=== PATIENT | female | born 1945 | race Caucasian/White ===

== ENCOUNTER 2016-07-08 14:08 | Inpatient (IN) | payer MEDICARE ==
[~2016-07-08] VITALS: Ht 167.6 cm; Wt 81.3 kg
--- NOTE | 2016-07-08 14:05 | ED.REPORT ---
HPI-Neurologic Deficit Date of Service Jul 08, 2016 ED Provider: History of Present Illness: Last known normal: 1339 today The patient is a 70 year old female with history of hypertension, who presents to the emergency department by EMS for sudden onset of stroke like symptoms. She was last seen normal prior to 1340. She suddenly developed left-sided weakness and numbness, left-sided facial droop, slurred speech, and a right- sided headache. Her symptoms have improved since onset. She has not had similar symptoms in the past. She denies history of previous stroke. Nursing Notes Stated Complaint: POSS STROKE Nursing Notes Reviewed: Yes Allergies: Coded Allergies: morphine (Verified Allergy, Intermediate, Hives, 06/07/15) Scheduled Hydrochlorothiazide (Hydrochlorothiazide) 25 Mg Tablet 25 MG PO DAILY Lisinopril (Lisinopril) 5 Mg Tablet 5 MG PO DAILY General Time Seen by Provider: 14:06 Chief Complaint Other (left-sided weakness) Hx Obtained From: Patient, EMS Arrived By: Ambulance Sudden in Onset?: Yes Onset Occurred: 16 - 30 minutes ago Symptom Duration: Since onset Progression Since Onset: Gradually improving Location: : Head Quality: Painful Severity: Current: No pain currently Severity: Maximum: Moderate Recent Healthcare: No recent doctor visit, No recent hospitalization Similar Sx Previous: No Risk Factors TPA Administration/Criteria Stroke Thrombolytic Therapy : TPA Considered: Yes Neurologist Contacted: No TPA Administered Intravenously: No, not indicated (symptoms improved) NIH Stroke Scale Level of Consciousness: Alert and responsive (0) Ask Month & Age: Both questions right (0) Open/Close Eyes/Hand Residential Tech: Performs both tasks (0) Horizontal EO Movements: None (0) Visual Garcia: No visual loss (0) Facial Palsy: Normal symmetry (0) Right Arm Motor Drift (10s): No drift 10 sec (0) Left Arm Motor Drift (10s): No drift 10 sec (0) Right Leg Motor Drift (5s): No drift 5 sec (0) Left Leg Motor Drift (5s): No drift 5 sec (0) Limb Ataxia FNF/Heel-Elizabeth: No ataxia (0) Sensation (Arms/Legs/Face): No sensory loss (0) Language Aphasia: No aphasia, normal (0) Dysarthria: No dysarthria, normal (0) Extinction/Inattention: No exctinct/inattent (0) NIHSS Score: 0 Time NIHSS Performed: 14:20 Date NIHSS Performed: Jul 08, 2016 Past Medical History Past Medical History Hypertension Essential tremor Past Surgical History Left knee surgery Family History Noncontributory Smoking History Former Smoker Social History Alcohol Use: Denies alcohol use Drug Use: Denies drug use Other Social History: , Local resident Occupation lives in bottom of a 2 story house Ambulatory Status Independent Review of Systems Neurologic: Reports: Focal weakness, Headache, Numbness, Slurred speech Complete sys rev & neg: except as marked. Physical Exam Initial Vital Signs Vital Signs (First) Date Time Temp Pulse Resp B/P Pulse Ox O2 Delivery O2 Flow Rate FiO2 07/08/16 14:22 36.6 92 19 162/91 Room Air 07/08/16 15:00 99 Initial VS: Reviewed ENT: Mucous membranes moist, Conjunctiva normal, No scleral icterus Neck: Supple, Non-tender, Full range of motion Abdomen / GI: Soft, Non-tender, No guarding, No rebound, No distention Extremities: Vascular intact, Neuro intact, No swelling, No tenderness Skin: Warm, Dry, No cyanosis Psychiatric: Mood/affect normal, Behavior normal, Normal thought content General/Constitutional: Awake, Alert Head / Eyes: Atraumatic, Normocephalic, PERRL, EOMI, No nystagmus Respiratory / Chest: Atraumatic, Breath sounds NL, Breath sounds = bilat, No respiratory distress, No rales, No rhonchi, No wheezing Cardiovascular: Heart rate NL, Regular rhythm, Heart sounds NL, No murmurs, No rubs, Peripheral circulation NL Neurologic: Oriented X3, Speech NL, No motor deficits, No sensory deficits, CN II - XII intact, Cerebellar NL, Memory NL NIHSS: 0 Interpretation & Diagnostics Lab Results Interpretation Result Diagram: 07/08/16 1410 07/08/16 1410 Test 07/08/16 14:10 White Blood Count 9.0th/mm3 (3.8-10.1) Red Blood Count 3.92mil/mm3 (3.90-5.20) Hemoglobin 12.2g/dL (12.0-15.6) Hematocrit 36.9% (35.0-46.0) Mean Corpuscular Volume 94.1fL (81-100) Mean Corpuscular Hemoglobin 31.1pg (27.0-35.0) Mean Corpuscular Hemoglobin Concent 33.1% (32.0-37.0) Red Cell Distribution Width 12.6% (12.3-15.4) Platelet Count 333bil/L (150-400) Neutrophils (%) (Auto) 57.5% (40-74) Lymphocytes (%) (Auto) 31.5% (14-46) Monocytes (%) (Auto) 5.9% (4-12) Eosinophils (%) (Auto) 4.3% (0-5) Basophils (%) (Auto) 0.7% (0-3) Prothrombin Time 9.9sec (8.1-12.5) Prothromb Time International Ratio 0.93ratio Activated Partial Thromboplast Time 25.2sec (22.8-33.0) Sodium Level 139mEq/L (134-144) Potassium Level 4.6mEq/L (3.5-5.2) Chloride Level 102mEq/L (97-108) Carbon Dioxide Level 22mmol/L (18-29) Blood Urea Nitrogen 22mg/dL (8-27) Creatinine 1.15mg/dL (0.57-1.00) Estimat Glomerular Filtration Rate 66mL/min (>59) Glucose Level 145mg/dL (60-99) Calcium Level 10.0mg/dL (8.5-10.1) Total Bilirubin 0.3mg/dL (0.0-1.2) Aspartate Amino Transf (AST/SGOT) 20U/L (0-50) Alanine Aminotransferase (ALT/SGPT) 16U/L (0-32) Alkaline Phosphatase 53U/L (25-165) Troponin T < 0.010ug/L (0.0-0.011) Total Protein 7.2g/dL (6.4-8.4) Albumin 4.0g/dL (3.4-5.0) ECG Interpretation ECG Interpretation: Sinus rhythm with a rate of 85 Abnormal R-wave progression Time: 14:29 Interpreted by: ED physician X-Ray Chest Interpretation Chest Xray Interpretation: IMPRESSION: No acute cardiopulmonary findings. Dictated by: Yara Quigley M.D. on 07/08/2016 at 14:57 Interpretation / Wet Read by: Interpret - Radiologist CT Head Interpretation IMPRESSION: 1. No acute intracranial findings. 2. Findings likely associated with chronic microvascular ischemic changes. This study fulfills neurological imaging criteria for inclusion or exclusion of acute stroke therapies based on available published neurological guidelines. Dictated by: Yara Quigley M.D. on 07/08/2016 at 14:25 Study: Head CT no contrast Interpretation / Wet Read by: Interpret - Radiologist Re-Eval/Medical Decision Med Decision/Clinical Course TIA. Will admit. No indication for TPA as symptoms have resolved. Source of Hx: Old records, EMS Re-Evaluation/Progress : Time of Eval: 14:30 Re-Evaluation/Progress Note: Discussed head CT results, diagnosis, and plan for admission. Consultation : Referral / Consult Name: Jax Lund MD Consulted With: Hospitalist Requested Call at: 15:03 Call Returned at: 15:55 Pump Station Operator: Will see patient, Agrees with eval, Agrees with plan, Accepts admit Counseled Regarding: Diagnosis, Lab results, Need for admission Discharge & Departure Impression: Primary Impression: TIA (transient ischemic attack) Transient cerebral ischemia type: unspecified Qualified Code: G45.9 - Transient cerebral ischemic attack, unspecified Disposition: ADMITTED TO HOSPITAL Discharge Condition All VS Reviewed: Yes Condition: Stable Referrals: Matt Cameron MD (PCP) Scribe Attestation Portions of this note were transcribed by Carole Jeter. I, Dr. Busch personally performed the history, physical exam and medical decision-making; I reviewed and confirmed the accuracy of the information in the transcribed note. Signed by: Avril Cardoza, 07/08/2016 at 1600. copies to: Matt Cameron MD, Timothy S DO Jul 08, 2016 14:05 Carole Jeter Jul 08, 2016 14:14
[~2016-07-08 14:08] MED LIST: HYDR25TA4 PO; LISI-571 PO
[2016-07-08] MEDS ORDERED: 0.9% Sodium Chloride 1,000 ML IV ONE (14:15)
[2016-07-08 14:17] LABS: BASOPHILS % (AUTO) 0.7 % (0-3); EOSINOPHILS % (AUTO) 4.3 % (0-5); MONOCYTES % (AUTO) 5.9 % (4-12); Mean Corpuscular Hemoglobin 31.1 pg (27.0-35.0); Mean Corpuscular Volume 94.1 fL (81-100); NEUTROPHILS % (AUTO) 57.5 % (40-74); Platelet Count 333 bil/L (150-400)
[2016-07-08 14:22] VITALS: BP 162/91; PULSE 92; RESP 19
--- NOTE | 2016-07-08 14:30 | DRSVH ---
PROCEDURE: CT BRAIN (TPA) ([id number]) INDICATIONS: Stroke TECHNIQUE: Noncontrast 4.5 mm thick angled axial sections acquired from the foramen magnum to the vertex, with c oronal reformats. COMPARISON: None. FINDINGS: Image quality: Excellent. CSF spaces: Basal cisterns are patent. No extra-axial fluid collections. The ventricles are symmet zoie in size and shape. Brain: No intracranial bleeds or masses. There is cerebral volume loss for age, with resultant vent ricular and sulcal prominence. There are periventricular and deep white matter chronic small vessel ischemic changes. There is intracranial internal carotid artery atherosclerosis. Skull and face: Calvarium and visualized facial bones appear intact, without suspicious lesions. Sinuses: Visualized sinuses and mastoids are clear. IMPRESSION: 1. No acute intracranial findings. 2. Findings likely associated with chronic microvascular ischemic changes. This study fulfills neurological imaging criteria for inclusion or exclusion of acute stroke therapie s based on available published neurological guidelines. Dictated by: Yara Quigley M.D. on 07/08/2016 at 14:25 Approved by: Yara Quigley M.D. on 07/08/2016 at 14:28
[2016-07-08 14:35] LABS: INR 0.93 ratio
[2016-07-08 14:42] LABS: TROPONIN T < 0.010 ug/L (0.0-0.011)
[2016-07-08 15:00] VITALS: BP 169/100; PULSE 80; RESP 15; O2SAT 99
--- NOTE | 2016-07-08 15:00 | DRSVH ---
PROCEDURE: X-RAY CHEST ONE VIEW, PORTABLE ([id number]) INDICATIONS: cva TECHNIQUE: One view of the chest was acquired. COMPARISON: None. FINDINGS: Surgical changes and devices: None. Lungs and pleura: No pleural effusions or pneumothorax. Lungs are clear. Mediastinum: Mediastinal contours appear normal. Heart size is normal. Bones and chest wall: No suspicious bony lesions. Overlying soft tissues appear unremarkable. IMPRESSION: No acute cardiopulmonary findings. Dictated by: Yara Quigley M.D. on 07/08/2016 at 14:57 Approved by: Yara Quigley M.D. on 07/08/2016 at 14:58
[2016-07-08 15:45] VITALS: BP 153/73; PULSE 82; RESP 18; O2SAT 98
[2016-07-08] MEDS ORDERED: Alum-Mag Hydrox-Simeth 30 mL Suspension PO PRN (15:55)
[2016-07-08] MEDS ORDERED: Ondansetron 2 mg/mL 2 mL Inj IVPUSH PRN (15:55)
--- NOTE | 2016-07-08 15:55 | NUR ---
Evaluation completed. Please go to "Notes" then click on "Assessments and Notes" (bottom left corner of screen). Then select appropriate discipline tab on top of screen.
[2016-07-08 16:26] VITALS: BP 159/81; PULSE 80; RESP 19; O2SAT 99
[2016-07-08] MEDS ORDERED: PROP60CA2 PO (16:45)
--- NOTE | 2016-07-08 17:00 | PCM.HPMED ---
Subjective Date of Service Jul 08, 2016 Primary Provider: Admitting Physician: Jax Lund MD Primary Care Physician: Matt Cameron MD Attending Physician: Jax Lund MD Chief Complaint: left-sided weakness and numbness, left-sided facial droop, slurred speech, and a right-sided headache History of Present Illness: This is a 70 years old female with past medical history of hypertension, essential tremor, who was brought to the hospital after she experienced left- sided weakness and numbness, left-sided facial droop, slurred speech, and a right-sided headache at around 2:30 today. Her symptom lasted approximately 30 minutes. EMT were called on the scene and brought the patient did emergency room. By the time patient arrived a emergency room on her symptom were already resolved . In ER a CT scan of the head was negative. Patient denied any previous episode, no chest pain, no shortness of breath, no palpitation, no loss of consciousness, no lightheadedness, no abdominal pain, no nausea, no vomiting, no seizure or seizure-like symptom. She is being kicked to observation to rule out TIA versus CVA. Review of Systems: Comprehensive review SYSTEM X12 POINTS negative except for what described above in history of present illness Allergies Coded Allergies: morphine (Verified Allergy, Intermediate, Hives, 06/07/15) Home Medications Hydrochlorothiazide (Hydrochlorothiazide) 25 Mg Tablet 25 MG PO DAILY Lisinopril (Lisinopril) 5 Mg Tablet 5 MG PO DAILY PMH Hypertension, essential tremor Surgical History Left knee surgery Family History Family history reviewed and is noncontributory to the present illness Social History Hx Alcohol Use: No Hx Substance Use: No Smoking Status: Former Smoker Living Arrangement: with Family Exam Vital Signs Vital Sign - Last Date Time Temp Pulse Resp B/P Pulse Ox O2 Delivery O2 Flow Rate FiO2 07/08/16 16:26 36.7 80 19 159/81 99 Room Air Exam General/conditional: Well-nourished man but comfortably. Not to distress. AAO x 3 HEENT: PERRL, EOMI, sclerae anicteric Mouth: Oral mucosa, no oral thrush Neck: Supple, no JVD, no carotid bruit, trachea is midline x-ray Chest: No chest wall tenderness, normal respiratory effort. Heart: S1, S2 regular rate and rhythm no gallop, no murmur. Lung: Clear bilaterally to auscultation, no crackles, no wheezing Abdomen: Soft non tender non distended with audible bowel sounds in all quadrants Extremity: No cyanosis, no edema, tenderness Skin: No rash, no ulcers Neuro : Strength 5 x 5 bilaterally. AAO x3. , Non focal Lab and Diagnostics Result Diagram: 07/08/16 1410 07/08/16 1410 X-Rays, CTs and MRIs Head CT scan reviewed : 1. No acute intracranial findings. 2. Findings likely associated with chronic microvascular ischemic changes. Chest x-ray reviewed : No cardio pulmonary disease 12-lead ECG Normal sinus rhythm. ST changes. No atrial fibrillation or V. tach Assessment & Plan 1. TIA vs CVA 2. Hypertension 3. Essentail Tremor Admit to telemetry. Monitor for cardiac arrhythmia. Currently in normal sinus rhythm Initial CT scan of the head is negative. Patient symptoms resolved. NIHSS score is 0 in ER Swallow screen and Start aspirin 81 mg orally daily. Obtain MRI of the brain, 2-D echocardiogram, carotid Doppler Physical therapy evaluation. Lipid profile, hemoglobin A1c, TSH, antiphospholipid antibody. On antihypertensive medication. Systolic blood pressure 150. Enoxaparin for DVT prophylaxis. Short hospital stay is expected Pain Evaluation: Adequate Pain Control VTE Prophylaxis: Sub-Q Enoxaparin Resuscitation Status: CPR: Attempt Resuscitation Time spent 75 minutes Jax Lund MD Jul 08, 2016 17:00
--- NOTE | 2016-07-08 17:20 | NUR ---
Arrival to floor Pt arrived to floor, able to ambulate to bed from stretcher. Alert and orient, no oxygen needs, pt had speech eval complete, and General diet ordered by Speech. Pt has no pain. Pt has no TIA deficits Family is at bedside.
[2016-07-08 18:23] LABS: INR 0.93 ratio
[2016-07-08 18:27] VITALS: PULSE 84
--- NOTE | 2016-07-08 19:47 | NUR ---
DOMINIQUE explained and signed, copy given to pt.
[2016-07-08 20:38] VITALS: BP 160/92; PULSE 85; RESP 19; O2SAT 98
[2016-07-08 20:55] LABS: APPEARANCE,URINE CLEAR (CLEAR,HAZY); COLOR,URINE STRAW (YELLOW); OCCULT BLOOD,URINE NEGATIVE (NEGATIVE); UROBILINOGEN,URINE NORMAL (NORMAL)
[2016-07-09] VITALS (8 sets, daily range): BP systolic 117–146; BP diastolic 75–98; PULSE 75–109; RESP 16–19; O2SAT 94–99
[2016-07-09 04:08] LABS: Hemoglobin A1C 5.7 % (4.8-5.6)
--- NOTE | 2016-07-09 05:30 | NUR ---
Activity Pt was able to ambulate to the bathroom and stood on the side of the bed to remove her sweat pants. Pt has a steady gait with non slip socks worn for safety. Pt denies dizziness, lightheadedness, numbness and tingling. Pt denies pain and chest discomfort. Pt appears to be resting comfortably without distress. care ongoing.
--- NOTE | 2016-07-09 10:13 | PCM.PNMED ---
Subjective Date of Service Jul 09, 2016 Subjective Follow-up for TIA versus CVA. Patient seen and examined at bedside. No overnight event. Telemetry monitoring shows normal sinus rhythm Patient has no new neurological deficit and all her symptoms subsided Exam Vital Signs Vital Sign - Last Date Time Temp Pulse Resp B/P Pulse Ox O2 Delivery O2 Flow Rate FiO2 07/09/16 06:22 75 07/09/16 05:54 36.5 18 125/75 99 Room Air Intake and Output 07/08/16 07/08/16 07/09/16 Cumulative From/Thru 15:00 23:00 07:00 07/08/16 14:22 - 07/09/16 06:52 Intake Total 1000 ml 200 ml 800 ml 2000 ml Output Total 1300 ml 1300 ml Balance 1000 ml 200 ml -500 ml 700 ml Intake Oral 200 ml 800 ml 1000 ml IV Total 1000 ml 1000 ml Output Urine Total 1300 ml 1300 ml # Voids 2 2 # Bowel Movements 1 1 Exam General/conditional: Not to distress. AAO x 3 Mouth: Oral mucosa, no oral thrush Neck: Supple, no JVD, no carotid bruit, trachea is midline Chest: normal respiratory effort. No deformities Heart: S1, S2 regular rate and rhythm no gallop, no murmur. Lung: Clear bilaterally to auscultation, no crackles, no wheezing Abdomen: Benign Extremity: No cyanosis, no edema, tenderness Neuro : Strength 5 x 5 bilaterally. No deficit, AAO x3. , Non focal IVs and Medications Medications Reviewed: Medications were reviewed in detail Lab and Diagnostics Result Diagram: 07/08/16 1410 07/08/16 1410 X-Rays, CTs and MRIs Head CT scan reviewed : 1. No acute intracranial findings. 2. Findings likely associated with chronic microvascular ischemic changes. Chest x-ray reviewed : No cardio pulmonary disease 12-lead ECG Normal sinus rhythm. ST changes. No atrial fibrillation or V. tach Assessment & Plan 1. TIA vs CVA 2. Hypertension 3. Essentail Tremor 4- Pre-diabetes : A1c 5.7 Patient doing better today,. No neurological complaints. Telemetry monitoring showed normal sinus rhythm MRI of the head is pending, as well as 2-D echocardiogram and carotid Doppler Continue Plavix 81 mg orally daily. Glucose is 145 and hemoglobin A1c is 5.7. This is pre-diabetes and diabetic diet is recommended. No need for antihypertensive agent at this time Physical therapy evaluation is pending Lipid profile,, TSH, antiphospholipid antibody all pending Enoxaparin for DVT prophylaxis. Discharge anticipated within 24 hours VTE Prophylaxis: Sub-Q Enoxaparin VTE Mechanical Devices: Intermittant Pneumatic CD Resuscitation Status: CPR: Attempt Resuscitation Time spent 25 minutes Jax Lund MD Jul 09, 2016 10:13
--- NOTE | 2016-07-09 11:05 | DRSVH ---
PROCEDURE: MRI BRAIN WITHOUT CONTRAST ([id number]) INDICATIONS: TIA vs CVA. Left sided weakness and numbness with left-sided facial droop, slurred spe ech, and right-sided headache. TECHNIQUE: Non-contrast axial T1 spin echo, axial T2 fast spin echo, sagittal and axial FLAIR, coronal T2 fast s pin echo, axial gradient echo, axial diffusion and ADC through the brain. COMPARISON: [facility], CT, BRAIN (TPA), 07/08/2016, 14:15. FINDINGS: Image quality: There is motion artifact slightly limiting evaluation. CSF spaces: There is mild cerebral volume loss with prominence of the ventricles and sulci. Basal ci sterns are patent. No extra-axial fluid collections. Brain: There are multiple clustered foci of restricted diffusion involving the right thalamus and med ial right temporal lobe. There is corresponding mild T2 hyperintensity. Findings are consistent wit h acute to subacute infarcts. There is corresponding linear GRE susceptibility along the medial righ t temporal lobe suspicious for developing hemorrhagic conversion. There are bilateral scattered subc ortical and periventricular foci of white matter T2 hyperintensity consistent with mild chronic small vessel ischemic changes. No mass or mass effect. Brainstem appears within normal limits. Skull and face: Calvarial bone marrow is normal in signal. Orbits are normal. Sinuses: There is mild mucosal thickening in the maxillary and ethmoid sinuses. Mastoid air cells ar e clear. IMPRESSION: 1. Acute to subacute infarcts in the right thalamus and medial right temporal lobe with suggestion o f hemorrhagic conversion along the medial temporal lobe. 2. Mild cerebral volume loss and chronic white matter small vessel ischemic changes. Dictated by: Prabhu Lancaster M.D. on 07/09/2016 at 11:03 Approved by: Prabhu Lancaster M.D. on 07/09/2016 at 11:03
--- NOTE | 2016-07-09 13:49 | DRSVH ---
PROCEDURE: US BILATERAL DUPLEX DOPPLER IMAGING OF THE CAROTIDS ([id number]) INDICATIONS: CVA TECHNIQUE: Color and pulse Doppler interrogation was performed of both carotid systems, with image documentation and velocity measurements. COMPARISON: [facility], MR, MR BRAIN WO CON, 07/09/2016, 10:13. FINDINGS: All stenosis calculations are based on NASCET criteria. Right side: Brachial blood pressure: 125/80 mm Hg. Common carotid artery peak systolic velocity: 95 cm/sec. Internal carotid artery peak systolic velocity: 90 cm/sec. Internal carotid artery end diastolic velocity: 32 cm/sec. External carotid artery peak systolic velocity: 100 cm/sec. ICA/CCA peak systolic ratio: 1.0. [place] scale imaging description: Calcified plaques at the bifurcation Percent internal carotid artery stenosis: Less than 50%. Vertebral artery: Flow direction is antegrade. Left side: Brachial blood pressure: n.a. Common carotid artery peak systolic velocity: 79 cm/sec. Internal carotid artery peak systolic velocity: 105 cm/sec. Internal carotid artery end diastolic velocity: 29 cm/sec. External carotid artery peak systolic velocity: 81 cm/sec. ICA/CCA peak systolic ratio: 1.3. [place] scale imaging description: Calcified plaques at the bifurcation Percent internal carotid artery stenosis: Less than 50%. Vertebral artery: Flow direction is antegrade. IMPRESSION: 1. Less than 50% internal carotid stenosis bilaterally. 2. Antegrade vertebral artery flow bilaterally. Dictated by: Kelly Camacho M.D. on 07/09/2016 at 13:45 Approved by: Kelly Camacho M.D. on 07/09/2016 at 13:47
--- NOTE | 2016-07-09 13:50 | NUR ---
[facility] signed
--- NOTE | 2016-07-09 14:18 | DRSVH ---
[facility] [address] [place] [address] Echocardiogram Report Name: BRANDON CASTILLO JStudy Date: 07/09/2016 Height: 66 in Hospital Exam Location: [facility] Weight: 178 lb Gender: Female BSA: 1.9 m2 : 1945 Age: 70 yrs BP: 125/75 mmHg Reason For Study: STROKE Ordering Physician: Performed By: Mariza Beckman Referring Physician: Matt Cameron Interpretation Summary The left ventricle is normal in size, wall thickness, and systolic function with the ejection fraction visually estimated to be 65-70%.without any focal wall motion abnormalities although there is a borderline dyssynchronous contraction pattern, consistent with a conduction abnormality. Assessment of diastolic parameters indicates a relaxation abnormality of the left ventricle, consistent with normal filling pressures. The right ventricle is normal in size and function. The right ventricular systolic pressure is estimated at 26 mmHg assuming a right atrial pressure of 3 mm Hg. Both atria are normal in size. There is no significant valvular heart disease. Procedure: A two-dimensional transthoracic echocardiogram with color flow and Doppler was performed. The study quality was technically adequate. There is no prior echocardiogram noted for this patient. The patient was in normal sinus rhythm during the exam. Left Ventricle: The left ventricle is normal in size, wall thickness, and systolic function without any focal wall motion abnormalities. The ejection fraction is estimated to be 65-70%. There is a borderline dyssynchronous contraction pattern, consistent with a conduction abnormality. Spectral Doppler of the mitral valve is reversed, with an E/A wave ratio < 1.0. Assessment of diastolic parameters indicates a relaxation abnormality of the left ventricle, consistent with normal filling pressures. Right Ventricle: The right ventricle is normal in size and function. Atria: Both atria are normal in size. The interatrial septum is intact with no evidence for an atrial septal defect. There is no Doppler evidence for an atrial septal defect. Mitral Valve: There is mild mitral annular calcification. The mitral valve leaflets appear mildly thickened, but open well. There is trace mitral regurgitation. Aortic Valve: The aortic valve is trileaflet. The aortic valve is slightly calcified. The aortic valve opens well. No aortic regurgitation is present. Tricuspid Valve: The tricuspid valve leaflets are thin and pliable. There is a trace or physiologic amount of tricuspid regurgitation. The right ventricular systolic pressure is estimated at 26 mmHg assuming a right atrial pressure of 3 mm Hg. Pulmonic Valve: The pulmonic valve is not well visualized. There is no pulmonic valvular regurgitation. There is no significant valvular heart disease. Great Vessels: The aortic root is normal size. The ascending aorta is at the upper limits of normal in size. The pulmonary artery is normal size. The IVC is of normal diameter and collapses greater than 50% with a sniff. This suggests a low right atrial pressure of 3 mm Hg. Pericardium/ Pleura There is no pericardial effusion. There is no pleural effusion. MMode/2D Measurements & Calculations LVIDd: 5.0 cm LA dimension: 3.6 cm RA long axis LVOT diam: 2.1 cm LVIDs: 3.1 cm AoV Opening FS: 39.0 % LA A2 area: 20.6 cm RA area IVSd: 0.94 cm LA A4 area: 20.0 cm Ao root diam LVPWd: 0.84 cm LA length (vol) : 14.3 cm RA vol asc Aorta Diam LA vol: 63.8 ml : 41.5 ml LA vol index RA Ao Arch Diam (Prox : 21.8 mm/ Trans): 2.4 cm RVDd major IVC diam: 1.9 cm : 5.2 cm LV duncan. diameter/BSA LV sys. diameter/BSA RVD2 (mid) (cm/m^2): 2.6 (cm/m^2): 1.6 : 2.5 cm Doppler Measurements & Calculations Ao V2 max MV E max joo MV E/A: 0.75 TR max joo : 190.4 cm/sec : 77.9 cm/sec Lat Peak E' Joo : 237.4 cm/sec Ao max PG MV A max joo TR max PG : 14.5 mmHg : 103.7 cm/sec E/E' lat: 12.0 : 22.5 mmHg Ao mean PG MV P1/2t: 96.0 msec Pulm A Revs Dur PA V2 max : 132.5 cm/sec LVOT Max Joo MV A dur: 0.14 sec PA mean PG : 110.6 cm/sec ARMIN(I,D): 2.2 cm PA Accel Time sev ratio : 0.07 sec MV dec time MV P1/2t max joo Ao V2 mean LV V1 max PG : 0.32 sec : 119.1 cm/sec Ao V2 VTI: 32.6 cm LV V1 VTI MVA(P1/2t): 2.3 cm2 : 20.2 cm ARMIN(V,D): 2.1 cm2 PA V2 mean ARMIN indexed to BSA Pulm A Revs Dur - MV A : 87.6 cm/sec (cm^2/m^2): 1.2 Dur: -0.01 msec Reading Physician:02:17 PM
--- NOTE | 2016-07-09 15:29 | NUR ---
Social Work: Initial Assessment Data & Assessment: See initial Assessment. EMR reviewed. Patient is a 70 y/o female that admitted on 07/08/16 for TIA and near Syncope per H&P. Satellite Manager met with patient at bedside to complete initial assessment, SW role reviewed and discharge planning discussed. Patient confirmed that he NOK is her Kulwant Momin. Patient does not have an Advance Directive/DPOA and declined information from SW. Patient confirmed PCP as Dr. Matt Cameron. Patient's insurance is listed as [facility] [place] Medicare. Patient has no VA and LTC benefits. Patient's re-admit score is 0 no risk. Patient lives at home with her spouse in a two story home, but she lives on the main floor. Patient drives and is independent at baseline. Patient has a quad cane tat she purchased after a previous surgery. Patient has no HH and no SNF history. Patient does not have any discharge needs at the current time. SW will continue to follow patient. Plan: Patient is likely to discharge home with no needs. SW will continue to follow and assist patient throughout stay. Florian Corona LMSW, [facility] Addendum: 07/09/16 at 1542 by FLORIAN CORONA Amended: Links added.
--- NOTE | 2016-07-09 16:47 | NUR ---
neuro deficit neuro signs seem WNL, no facial droop or numbness, no problems swallowing noted, equal decaler, fairly steady gait, denies H/A. pt may have slightly slurred speech, but she feels her speech is normal.
[2016-07-10] VITALS (7 sets, daily range): BP systolic 97–150; BP diastolic 60–87; PULSE 77–113; RESP 16–21; O2SAT 96–98
--- NOTE | 2016-07-10 05:22 | NUR ---
Activity Pt up to BR overnight with SBA for safety and has been using call light appropriately. Neuro checks WNL. SCDs are on. Pt did complain of shoulder and neck pain rated 8/10, pt attributes pain to being stiff and not as active as she normally is. Pt was given Tylenol PO per eMAR. On reassessment, pt appears to be sleeping and comfortable.
--- NOTE | 2016-07-10 10:26 | DRSVH ---
PROCEDURE: CT ANGIOGRAPHY OF THE BRAIN WITH AND WITHOUT CONTRAST ([id number]) INDICATIONS: ICB HARBOR VIEW REQUEST TECHNIQUE: Precontrast 4.5 mm thick angled axial sections acquired from the foramen magnum to the vertex. Afte r the administration of intravenous contrast, 1 mm thick sections acquired through the [place] of [place] is. Postcontrast 4.5 mm thick sections then re-acquired from the foramen magnum to the vertex. 3-di mensional mrgmhvf-mpoamtdsi-neuijqlixa (MIP) and/or volume rendering reformats were acquired of the c entral intracranial vasculature. For radiation dose reduction, the following was used: automated ex posure control, adjustment of mA and/or kV according to patient size. COMPARISON: [facility], US, US CAROTID DPLX DOPPLER BILAT, 07/09/2016, 12:36. [facility], MR, MR BRAIN WO CON, 07/09/2016, 10:13. FINDINGS: Image quality: Excellent. Anterior circulation: Intracranial internal carotid arteries are normal in size and flow. The flow within the paired anterior cerebral arteries is normal and symmetric. The flow within the middle cer ebral arteries is normal and symmetric. The anterior communicating artery is seen. No aneurysms are seen. Posterior circulation: Visualized portions of the vertebral arteries demonstrate normal caliber, and join to form a normal appearing basilar artery. The right posterior cerebral artery demonstrates abs ent flow roughly 35 mm distal to its origin. Left posterior cerebral artery is within normal limits. No aneurysms are seen. CSF spaces: Ventricles are normal in size and shape. Basal cisterns are patent. No extra-axial flu id collections. Brain: No midline shift. Vague low density within the right medial temporal lobe and thalamus is pre sent. No intracranial bleeds or masses. [place]quillo-white matter interface appears intact. Skull and face: Calvarium and facial bones appear intact, without suspicious lesions. Sinuses: Visualized sinuses and mastoids are clear. IMPRESSION: 1. Occluded right posterior cerebral artery, corresponding to the right-sided subacute infarcts. 2. No acute intercranial abnormality. Dictated by: Yash Arias M.D. on 07/10/2016 at 9:48 Approved by: Yash Arias M.D. on 07/10/2016 at 10:25
--- NOTE | 2016-07-10 12:14 | PCM.PNMED ---
Subjective Date of Service Jul 10, 2016 Subjective Follow up for acute CVA Patient reported to be anxious and having palpitaion earlier. molecular genetic pathologist shows normal sinus rhytym. Daily 12 leads EKG show SNR as well . Patient stated she had some tremor, which she attribute to her propanolol being on hold . No cp, no SOB, no palpitation. No new neurological deficit. No slurred speech, no weakness . Exam Vital Signs Vital Sign - Last Date Time Temp Pulse Resp B/P Pulse Ox O2 Delivery O2 Flow Rate FiO2 07/10/16 10:35 36.7 100 20 130/85 98 Room Air Intake and Output 07/09/16 07/09/16 07/10/16 Cumulative From/Thru 15:00 23:00 07:00 07/08/16 14:22 - 07/10/16 06:45 Intake Total 1324 ml 350 ml 3674 ml Output Total 1350 ml 550 ml 3200 ml Balance -26 ml -200 ml 474 ml Intake Oral 1324 ml 350 ml 2674 ml IV Total 1000 ml Output Urine Total 1350 ml 550 ml 3200 ml # Voids 2 # Bowel Movements 0 1 Exam General/conditional: Not to distress. AAO x 3 Mouth: Oral mucosa, no oral thrush Neck: Supple, no JVD, no carotid bruit, trachea is midline Chest: normal respiratory effort. No deformities Heart: S1, S2 regular rate and rhythm no gallop, no murmur. Lung: Clear bilaterally to auscultation, no crackles, no wheezing Abdomen: Soft, non tender, non distended . BS normal all quadrants Extremity: No cyanosis, no edema, tenderness Neuro : Strength 5 x 5 bilaterally. No deficit, AAO x3. , Non focal IVs and Medications Medications Reviewed: Medications were reviewed in detail Lab and Diagnostics Result Diagram: 07/08/16 1410 07/10/16 0550 X-Rays, CTs and MRIs Head CT scan reviewed : 1. No acute intracranial findings. 2. Findings likely associated with chronic microvascular ischemic changes. Chest x-ray reviewed : No cardio pulmonary disease 12-lead ECG Normal sinus rhythm. ST changes. No atrial fibrillation or V. tach Assessment & Plan 1. Subacute infarct affecting posterior cerebral artery 2. Hypertension 3. Essentail Tremor 4- Pre-diabetes : A1c 5.7 Patient doing better today,. No neurological complaints or deficits Telemetry monitoring showed no cardiac arrhythmia MRI showed subacute infart of thalamus and right frontal lobe. Possible hemorrhagic conversion/ The case was disused with at [facility] ([facility]) for possible transfer for higher level of care . After MRI review , the recommendation was to continue with aspirin and repeat head CT with contrast CT angiogram shows Occluded right posterior cerebral artery, corresponding to the right-sided subacute infarcts. No other abnormality. No bleed . Carotid doppler show less than 50% stenosis bilaterally . Echocardiogram shows no significant abnormality I will resume aspirin at his time . Physical therapy evaluation and recommendation Lipid profile ordered not done. antiphospholipid antibody is pending. Start IV fluid NS @ 100 ml/hr for 24 hours due to use on contrast . Repeat BMP in am . BP in the low side. I will continue holding propanolol ( Pt take 60 mg for essential tremor) and lisinopril for hypertension. Obtain lipid profile to assess need for statins Enoxaparin for DVT prophylaxis. Discharge anticipated within 24-48 hours VTE Prophylaxis: Sub-Q Enoxaparin VTE Mechanical Devices: Intermittant Pneumatic CD Resuscitation Status: CPR: Attempt Resuscitation Time spent 35 minutes Jax Lund MD Jul 10, 2016 12:14
--- NOTE | 2016-07-10 12:48 | NUR ---
pt was switched and ordered breakfast and ate 100 percent Addendum: 07/10/16 at 1249 by STEPHANIE GONG CNA Amended: Links added.
--- NOTE | 2016-07-10 12:59 | NUR ---
Elevated HR Pt has denied any pain today, up ad johnathan to the bathroom with steady gait. Pt tolerating general diet now without c/o nausea. Pt's HR up into the 140's. Hospitalist for Red Team notified via text. Pt has felt her essential tremor and states that she usually takes Propranolol ER 60mg daily. Notified physician of this. No orders received yet. Later notified hospitalist that pt is now in the 150's - pt remains asymptomatic with this. No orders received yet. Cont to monitor.
--- NOTE | 2016-07-10 13:20 | NUR ---
Evaluation completed. Please go to "Notes" then click on "Assessments and Notes" (bottom left corner of screen). Then select appropriate discipline tab on top of screen.
--- NOTE | 2016-07-10 13:46 | NUR ---
Social Work-readiness for discharge: Data:EMR Reviewed. Pt is on day 2 of hospitalization for TIA per H&P. Pt is not medically stable anticipate later today or tomorrow. PT has seen pt and cleared for home no needs. ST has seen pt and recommended outpt ST. Pt confirms plan of home no needs. Pt's family to provide transport home. No anticipated discharge needs. SW will continue to follow if needs arise. Assessment:pt who is independent at baseline. Plan:Pt to discharge home when medically stable via POV. No anticipated discharge needs. SW will continue to follow if needs arise. KASSANDRA Littlejohn
[2016-07-10] MEDS: 0.9% Sodium Chloride 1,000 ML IV SCH (14:22)
[2016-07-11 00:17] VITALS: BP 137/80; PULSE 100; RESP 17; O2SAT 96
[2016-07-11] MEDS: 0.9% Sodium Chloride 1,000 ML IV SCH ×2 (00:41→10:55)
--- NOTE | 2016-07-11 05:21 | NUR ---
Activity Pt reported having a "good night" no complaints of pain. No neuro deficits noted, pt getting up SBA for safety but overall ambulating well.
[2016-07-11 06:04] VITALS: BP 121/81; PULSE 82; RESP 17; O2SAT 99
[2016-07-11 10:26] VITALS: PULSE 83
[2016-07-11 11:16] VITALS: BP 142/84; PULSE 100; RESP 17; O2SAT 98
[2016-07-11] MEDS ORDERED: ASPI81TA3 PO (12:00)
[2016-07-11] MEDS ORDERED: PRA20 PO (12:00)
[2016-07-11 13:13] LABS: dRVVT 33.4 sec (0.0-44.0)
--- NOTE | 2016-07-11 13:42 | NUR ---
Social work-discharge: Data:EMR Reviewed. Pt is on day 3 of hospitalization for TIA per H&P. Pt is medically stable for discharge.PT has cleared pt for home, ST has recommended outpt ST services. Pt confirms plan of returning home. Pt's family to provide transport home today. No discharge needs identified. All updated and agreeable to plan. Assessment:Pt who is independent at baseline. Plan:Pt to discharge home today via POV. PT has cleared for home, ST recommending outpt services. No discharge needs identified. All updated and agreeable to plan. KASSANDRA Littlejohn
--- NOTE | 2016-07-11 14:02 | NUR ---
Discharge Note Pt denied any pain today, VSS, Tele SR - ST in the low 100's with ambulation, pt asymptomatic with this. Neuro's intact, pt ambulating in room with steady gait. Reviewed discharge instructions, medications/Rx, follow up PRN. S/Sx of stroke reviewed. Stroke booklet and care notes provided. Pt ready to discharge home with all belongings, accompanied by .
--- NOTE | 2016-07-17 20:46 | PCM.DC.MED ---
Discharge Summary Date of Service Jul 17, 2016 Dates of Hospitalization Date of Hospital Admission Jul 08, 2016 at 15:55 Date of Discharge: Jul 11, 2016 Providers: Admitting Physician: Jax Lund MD Primary Care Physician: Matt Cameron MD Attending Physician: Jax Lund MD Diagnosis at Time of Discharge Diagnosis at Time of Discharge 1. Right thalamic infarct 2. Hyperlipidemia Procedures XRay, CTs & MRIs PROCEDURE: MRI BRAIN WITHOUT CONTRAST ([id number]) INDICATIONS: TIA vs CVA. Left sided weakness and numbness with left-sided facial droop, slurred speech, and right-sided headache. IMPRESSION: 1. Acute to subacute infarcts in the right thalamus and medial right temporal lobe with suggestion of hemorrhagic conversion along the medial temporal lobe. 2. Mild cerebral volume loss and chronic white matter small vessel ischemic changes. Dictated by: Prabhu Lancaster M.D. on 07/09/2016 at 11:03 PROCEDURE: US BILATERAL DUPLEX DOPPLER IMAGING OF THE CAROTIDS ([id number]) INDICATIONS: CVA IMPRESSION: 1. Less than 50% internal carotid stenosis bilaterally. 2. Antegrade vertebral artery flow bilaterally. PROCEDURE: CT ANGIOGRAPHY OF THE BRAIN WITH AND WITHOUT CONTRAST ([id number]) INDICATIONS: ICB HARBOR VIEW REQUEST COMPARISON: [facility], US, US CAROTID DPLX DOPPLER BILAT, 2016, 12:36. [facility], , MR BRAIN WO CON, 07/09/2016, 10:13. IMPRESSION: 1. Occluded right posterior cerebral artery, corresponding to the right-sided subacute infarcts. 2. No acute intercranial abnormality. Dictated by: Yash Arias M.D. on 07/10/2016 at 9:48 ECG 12 Lead Normal sinus rhythm. ST changes. No atrial fibrillation or V. tach Brief History As per HPI by Dr Lund, "This is a 70 years old female with past medical history of hypertension, essential tremor, who was brought to the hospital after she experienced left-sided weakness and numbness, left-sided facial droop , slurred speech, and a right-sided headache at around 2:30 today. Her symptom lasted approximately 30 minutes. EMT were called on the scene and brought the patient did emergency room. By the time patient arrived a emergency room on her symptom were already resolved . In ER a CT scan of the head was negative. Patient denied any previous episode, no chest pain, no shortness of breath, no palpitation, no loss of consciousness, no lightheadedness, no abdominal pain, no nausea, no vomiting, no seizure or seizure-like symptom. She is being kicked to observation to rule out TIA versus CVA. " Hospital Course 1. Subacute infarct affecting posterior cerebral artery : identified on MRI and confirmed with CT angio. Infarct was small in size. At time of discharge pt had no discernible neurologic deficits on exam, though still noted some peculiarities in her general sensation. She was started on both Aspirin 81mg and Pravastatin 20mg at time of discharge, started in hospital once CT had ruled out evidence of significant hemorrhagic conversion. Plan to FU with primary care physician in 1-2 weeks of discharge for continued preventative health with this new diagnosis of CVA in setting of probably vascular disease. 2. Hypertension: BP under improved control by time of discharge. Home medications continued. Continue to evaluate out patient 3. Essential Tremor ; stable, no interventions 4- Pre-diabetes : A1c 5.7; stable, continue to follow. Exam Vital Signs (Last) Date Time Temp Pulse Resp B/P Pulse Ox O2 Delivery O2 Flow Rate FiO2 07/11/16 11:16 36.8 100 17 142/84 98 Room Air Test 07/08/16 14:10 07/08/16 17:50 07/08/16 20:32 07/09/16 15:50 White Blood Count 9.0th/mm3 (3.8-10.1) Red Blood Count 3.92mil/mm3 (3.90-5.20) Hemoglobin 12.2g/dL (12.0-15.6) Hematocrit 36.9% (35.0-46.0) Mean Corpuscular Volume 94.1fL (81-100) Mean Corpuscular Hemoglobin 31.1pg (27.0-35.0) Mean Corpuscular Hemoglobin Concent 33.1% (32.0-37.0) Red Cell Distribution Width 12.6% (12.3-15.4) Platelet Count 333bil/L (150-400) Neutrophils (%) (Auto) 57.5% (40-74) Lymphocytes (%) (Auto) 31.5% (14-46) Monocytes (%) (Auto) 5.9% (4-12) Eosinophils (%) (Auto) 4.3% (0-5) Basophils (%) (Auto) 0.7% (0-3) Activated Partial Thromboplast Time 25.2sec (22.8-33.0) Total Bilirubin 0.3mg/dL (0.0-1.2) Aspartate Amino Transf (AST/SGOT) 20U/L (0-50) Alanine Aminotransferase (ALT/SGPT) 16U/L (0-32) Alkaline Phosphatase 53U/L (25-165) Troponin T < 0.010ug/L (0.0-0.011) Total Protein 7.2g/dL (6.4-8.4) Albumin 4.0g/dL (3.4-5.0) Prothrombin Time 9.9sec (8.1-12.5) Prothromb Time International Ratio 0.93ratio Lupus Anticoagulant APTT 30.7sec (0.0-43.6) Dilute Ronnie Viper Venom (Lupus) 33.4sec (0.0-44.0) Lupus Anticoagulant Interpretation Comment: (.) Hemoglobin A1c 5.7% (4.8-5.6) Magnesium Level 2.0mg/dL (1.6-2.6) Urine Color Straw (YELLOW) Urine Appearance Clear (CLEAR,HAZY) Urine pH 6.0 (5.0-8.0) Urine Specific [place] <1.005 (1.003-1.035) Urine Protein Negativemg/dL (NEG,TRACE) Urine Glucose (UA) Negativemg/dL (NEGATIVE) Urine Ketones Negativemg/dL (NEGATIVE) Urine Occult Blood Negative (NEGATIVE) Urine Nitrite Negative (NEGATIVE) Urine Bilirubin Negative (NEGATIVE) Urine Urobilinogen Normalmg/dL (NORMAL) Urine Leukocyte Esterase Small (NEGATIVE) Urine RBC 0-2/hpf (0-2) Urine WBC 6-10/hpf (0-5) Urine Epithelial Cells Few/hpf (NONE-MOD) Urine Crystals None seen (NONE SEEN) Urine Bacteria None/hpf (NONE-FEW) Urine Hyaline Casts None/lpf (NONE) Urine Granular Casts None seen (NONE SEEN) Urine Waxy Casts None seen (NONE SEEN) Urine Red Blood Cell Casts None seen (NONE SEEN) Urine White Blood Cell Casts None seen (NONE SEEN) Urine Mucus None seen (None Seen) Urine Trichomonas None seen (NONE SEEN) Urine Yeast None (NONE SEEN) Urinalysis Comment None Urine Culture Reflexed Indicated Pro-B-Type Natriuretic Peptide 89.28pg/mL (0-301) Test 07/10/16 05:50 07/11/16 06:07 Triglycerides Level 102mg/dL (0-149) Cholesterol Level 214mg/dL (100-199) LDL Cholesterol, Calculated 162.600mg/dL (0-99) VLDL Cholesterol 20.400mg/dL HDL Cholesterol 31mg/dL (>39) Cholesterol/HDL Ratio 6.90 (0.0-4.4) Sodium Level 140mEq/L (134-144) Potassium Level 4.5mEq/L (3.5-5.2) Chloride Level 105mEq/L (97-108) Carbon Dioxide Level 22mmol/L (18-29) Blood Urea Nitrogen 22mg/dL (8-27) Creatinine 0.91mg/dL (0.57-1.00) Estimat Glomerular Filtration Rate 87mL/min (>59) Glucose Level 102mg/dL (60-99) Calcium Level 9.2mg/dL (8.5-10.1) General: Alert, Oriented X3, Cooperative, No Acute Distress Eyes: PERRLA Mouth: Mucous Membr Moist/[place] Chest & Lungs: Clear to auscultation & percussion Cardiovascular: Regular Rate/Rhythm Extremities: No cyanosis/clubbing/edma bilat Neurological: Grossly Neurologically Intact, Cranial Nerves 2-12 Intact, Normal Speech, Strength Normal 4/4 ext Discharge Medications Discharge Medications Aspirin Chew (Aspirin Chew) 81 Mg Chew 81 MG PO DAILY Prescribed by: PARAM SAUCEDO DO Lisinopril (Lisinopril) 5 Mg Tablet 5 MG PO DAILY (Reported) Pravastatin (Pravachol) 20 Mg Tablet 20 MG PO HS Prescribed by: PARAM SAUCEDO DO Propranolol ER (Propranolol ER) 60 Mg Cap.sa.24h 60 MG PO DAILY (Reported) Followup Plan Disposition: [place] home with plan to FU with PCP, consider out patient neurology referral in addition. Discharge Diet: No restrictions, Low fat, Low Sodium, Heart Healthy Discharge Activity: No restrictions Follow-up with PCP in: 2 weeks Time spent 40 minutes copies to: Matt Cameron MD Vital Signs Vital Sign - Last Date Time Temp Pulse Resp B/P Pulse Ox O2 Delivery O2 Flow Rate FiO2 07/11/16 11:16 36.8 100 17 142/84 98 Room Air Intake and Output 07/16/16 07/16/16 07/17/16 Cumulative From/Thru 15:00 23:00 07:00 07/08/16 14:22 - 07/11/16 13:29 Intake Total 7686 ml Output Total 5200 ml Balance 2486 ml Intake Oral 4466 ml IV Total 3220 ml Output Urine Total 5200 ml # Voids 2 # Bowel Movements 1 IVs and Medications Medications Reviewed: Medications were reviewed in detail Lab and Diagnostics Result Diagram: 07/11/16 0607 Param Saucedo DO Jul 17, 2016 20:46
--- NOTE | 2016-07-17 20:50 | PCM.DIMED ---
Discharge Instructions Date of Service Jul 17, 2016 Dates of Hospitalization Jul 08, 2016 at 15:55 Discharge Diagnosis Discharge Diagnosis 1. Right thalamic infarct 2. Hyperlipidemia Diet No restrictions, Low fat, Low Sodium, Heart Healthy Activity No restrictions Patient Instructions Follow-up Provider: Matt Cameron MD Follow-up with PCP in: 2 weeks Param Saucedo DO Jul 17, 2016 20:50
== END 2016-07-11 15:25 | disposition home or self-care (01) | DRG 66 ==
LOC: SED 14:08 → OSC 15:55 → OBSVTOIN 15:55
PROVIDERS: ADMIT Internal Medicine; ATTEND Internal Medicine
DX: I63.531 Cerebral infarction due to unspecified occlusion or stenosis of right posterior cerebral artery (principal); R29.810 Facial weakness; R47.81 Slurred speech; Z87.891 Personal history of nicotine dependence; G25.0 Essential tremor; R73.03 Prediabetes; I10 Essential (primary) hypertension; E78.5 Hyperlipidemia, unspecified